=== PATIENT | female | born 1985 | race Caucasian/White ===

== ENCOUNTER 2021-10-04 04:18 | Inpatient (IN) | payer OTHER ==
[~2021-10-04] VITALS: Ht 154.9 cm; Wt 2.7 kg
[~2021-10-04 04:18] MED LIST: PRENATAL 19 TAB1 TAB PO
[2021-10-04] MEDS ORDERED: IRON PO (05:25)
[2021-10-04] MEDS ORDERED: CHILDREN'S ASPI81 MG PO (05:26)
[2021-10-04] MEDS ORDERED: LOVENOX40 MG/0.4 SUBCUTANEO (05:28)
[2021-10-04] MEDS ORDERED: NIFEDIPINE20 MG PO (05:28)
[2021-10-04] MEDS ORDERED: ATABEX DHA 200200 MG (08:04)
[2021-10-04] MEDS ORDERED: IRON18 MG PO (08:04)
== END 2021-10-06 13:29 | disposition home or self-care (01) | DRG 787 ==
LOC: LDR 04:18 → OB/GYN 04:18 → O/R 07:56 → OB/GYN 10:37
PROVIDERS: ADMIT Specialist; ATTEND Specialist
PROC: 4A1HXCZ Monitoring of Products of Conception, Cardiac Rate, External Approach (ICD-10-PCS; 2021-10-04)
PROC: 0DNW0ZZ Release Peritoneum, Open Approach (ICD-10-PCS; 2021-10-04)
PROC: 10D00Z1 Extraction of Products of Conception, Low, Open Approach (ICD-10-PCS; principal; 2021-10-04 07:00)
DX: O34.211 Maternal care for low transverse scar from previous cesarean delivery (principal); O99.113 Other diseases of the blood and blood-forming organs and certain disorders involving the immune mechanism complicating pregnancy, third trimester; D68.69 Other thrombophilia; Z20.822 Contact with and (suspected) exposure to COVID-19; Z37.0 Single live birth; Z3A.37 37 weeks gestation of pregnancy; O99.613 Diseases of the digestive system complicating pregnancy, third trimester; K66.0 Peritoneal adhesions (postprocedural) (postinfection)